=== PATIENT | female | born 1995 ===

== ENCOUNTER → 2017-01-13 | Outpatient (REF) | LOC: WSOH 09:03 | DX: Z02.89 Encounter for other administrative examinations (principal) ==

== ENCOUNTER 2017-09-22 14:42 | Emergency (ER) | payer OTHER ==
[~2017-09-22] VITALS: Ht 167.6 cm; Wt 56.8 kg
[2017-09-22 15:03] VITALS: BP 121/77; PULSE 71; TEMP 98.2
[2017-09-22 16:58] LABS: HIV 1/2 Antibodies Non-Reactive; HIV-1p24 Antigen Non-Reactive
[2017-09-22 23:15] LABS: HEPATITIS B SURFACE ANTIBODY 122.6 (()); HEPATITIS B SURFACE ANTIGEN Negative (()); HEPATITIS C VIRUS ANTIBODY Negative (())
== END 2017-09-22 17:06 | disposition home or self-care (01) ==
LOC: COL.ER 14:42
PROVIDERS: Family Medicine
DX: S61.432A Puncture wound without foreign body of left hand, initial encounter (principal); W27.3XXA Contact with needle (sewing), initial encounter